=== PATIENT | male | born 1995 | race Two or more races ===

== ENCOUNTER 2025-04-17 21:35 | Emergency (ER) | payer OTHER ==
[2025-04-17] MEDS: Bacitracin Oint 1 GM U/D Packet TOP ONE (23:00)
[2025-04-17] MEDS: Lidocaine 1% with EPINEPHrine 1:100,000 50 ML MDV SUBCUT STA (23:00)
== END 2025-04-17 23:56 | disposition home or self-care (01) ==
LOC: JP.ED 21:35
DX: S91.311A Laceration without foreign body, right foot, initial encounter (principal); X58.XXXA Exposure to other specified factors, initial encounter
CPT/HCPCS: 12002; 99282